=== PATIENT | male | born 1975 | race Caucasian/White ===

== ENCOUNTER → 2023-09-18 08:48 | Outpatient (REF) | payer BC, SELFPAY | LOC: RAD 08:48 | PROVIDERS: ATTENDING PHYSICIAN Surgery; FAMILY PHYSICIAN Family Medicine | DX: R10.11 Right upper quadrant pain (principal) | CPT/HCPCS: 74176 ==

== ENCOUNTER 2024-02-10 06:19 | Day surgery (SDC) | payer BC, SELFPAY | END 2024-02-10 09:08 | disposition home or self-care (01) | LOC: GI 06:19 | PROVIDERS: ATTENDING PHYSICIAN Internal Medicine Gastroenterology | DX: Z12.11 Encounter for screening for malignant neoplasm of colon (principal); K64.8 Other hemorrhoids | CPT/HCPCS: G0121 ==